=== PATIENT | female | born 1955 | race Caucasian/White ===

== ENCOUNTER 2017-10-13 17:49 | Emergency (ER) | payer BC, OTHER ==
[2017-10-13] MEDS ORDERED: Oseltamivir 75 MG CAP ONE (18:13)
== END 2017-10-13 18:26 | disposition home or self-care (01) ==
LOC: BURERS 17:49
DX: J11.1 Influenza due to unidentified influenza virus with other respiratory manifestations (principal); F32.9 Major depressive disorder, single episode, unspecified; Z79.899 Other long term (current) drug therapy
CPT/HCPCS: 99283